=== PATIENT | male | born 1990 | race Caucasian/White ===

== ENCOUNTER 2021-11-24 17:32 | Emergency (ER) | payer BC ==
[2021-11-24] MEDS ORDERED: Sodium Chloride 0.9% 10 ML Syringe FLUSH PRN (18:16)
[2021-11-24] MEDS ORDERED: Sodium Chloride 0.9% 2.5 ML Syringe FLUSH PRN (18:16)
[2021-11-24] MEDS ORDERED: Sodium Chloride 0.9% 1,000 ML IV ONE (18:38)
[2021-11-24 19:44] LABS: BLOOD UREA NITROGEN,BUN 16 mg/dL (7.0-18.0); CARBON DIOXIDE,CO2 24.3 mmol/L (21.0-32.0); CHLORIDE,CL 104 mmol/L (98-107); GLUCOSE RANDOM 89 mg/dL (74-106); SODIUM,NA 140 mmol/L (136-148)
== END 2021-11-24 20:04 | disposition home or self-care (01) ==
LOC: MW.ED 17:32
DX: R00.2 Palpitations (principal)
CPT/HCPCS: 36415; 71045; 80053; 84443; 84484; 85025; 93005; 96360; 99285; J3490; J7030